=== PATIENT | male | born 1945 | race Caucasian/White ===

== ENCOUNTER 2021-03-06 03:15 | Emergency (ER) | payer MEDICARE, SELFPAY ==
--- NOTE | ~2021-03-06 | XR_ITS ---
EXAMINATION: XR G tube replacement w image INDICATION: G-tube replacement TECHNIQUE: Supine view of the abdomen is obtained on two radiographs. COMPARISON: None available FINDINGS: The gastrostomy appears to be within the stomach. Injected contrast material partially opac ifies the stomach and proximal small bowel. No extraluminal contrast is identified. IMPRESSION: 1. G-tube appears to be positioned stomach with no extraluminal contrast identified. Reviewed, dictated and finalized at location A. IMPRESSION: 1. G-tube appears to be positioned stomach with no extraluminal contrast identi fied.
[2021-03-06 03:12] VITALS: BP 145/90; PULSE 86; RESP 18; TEMP 36.5; O2SAT 100
[2021-03-06] MEDS: HYDROcodone/acetaminophen (*CRX) 5-325 MG TABLET 1 TAB PO (03:58)
[2021-03-06 04:31] VITALS: BP 116/87; PULSE 61; RESP 18; O2SAT 100
--- NOTE | 2021-03-06 04:33 | ED.GENADULT ---
HPI - General Adult General Chief complaint: Unspecified Stated complaint: g-tube out Time Seen by Provider: 03/06/21 03:18 History of Present Illness HPI narrative: Patient is a 75-year-old male who presents ER with dislodgment of his G-tube. He pulled it out 2 hours prior to arrival. Reports he got caught on something and came out. He requires it due to chronic dysphagia from previous stroke. No additional complaints. Related Data Home Medications Medication Instructions Recorded Confirmed acetaminophen 03/06/21 alprazolam 03/06/21 amlodipine 03/06/21 aspirin 03/06/21 atorvastatin 03/06/21 buspirone mg 03/06/21 chlorthalidone 03/06/21 dantrolene 25 mg PO TID 03/06/21 03/06/21 docusate sodium PO 03/06/21 lactose-reduced food with fibr ea 03/06/21 [Jevity 1.5 Leonidas] lansoprazole 03/06/21 potassium chloride 20 meq PO DAILY 03/06/21 03/06/21 tizanidine mg 03/06/21 trazodone 03/06/21 zolpidem 03/06/21 03/06/21 Allergies Allergy/AdvReac Type Severity Reaction Status Date / Time alteplase Allergy Unknown Verified 03/06/21 03:31 Review of Systems Review of Systems: All systems reviewed & are unremarkable except as noted in HPI and below Constitutional: Constitutional: Denies chills and Denies fever(s) Gastrointestinal: Gastrointestinal: Denies abdominal pain, Denies nausea and Denies vomiting Comments: Dislodgment of G-tube Musculoskeletal: Musculoskeletal: Denies myalgias and Reports muscle cramps (Spasticity) PMFSH Past Medical History Medical History (Updated 03/06/21 @ 04:47 by Jake Angel MD) Anxiety CHF (congestive heart failure) CVA (cerebral vascular accident) Dysphagia Hemiplegia affecting left nondominant side Hyperlipidemia Hypertension Surgical History Surgical History (Updated 03/06/21 @ 04:42 by Jake Angel MD) Gastrostomy tube in place Exam Narrative: GENERAL: Well-appearing, well-nourished, and in no acute distress. HEAD: Normocephalic, atraumatic. ENT: Dry mucous membranes. CHEST: Clear to auscultation. No respiratory distress. HEART: Regular rate and rhythm. Normal peripheral pulses. ABDOMEN: Soft, nontender, G-tube site in the epigastrium that is narrow without leaking of gastric contents. EXTREMITIES: Contractures of the left upper extremity with left-sided weakness. SKIN: Warm, dry, no rash. Course Course Emergency Course: Unable to place G-tube so a Rowland catheter has been placed and is in position. Patient will need to follow-up with GI. Vital Signs Vital signs: Vital Signs Temperature 97.7 F 03/06/21 03:12 Pulse Rate 86 03/06/21 03:12 Respiratory Rate 18 03/06/21 03:12 Blood Pressure 145/90 H 03/06/21 03:12 Pulse Oximetry 100 03/06/21 03:12 Temperature 97.7 F 03/06/21 03:12 Pulse Rate 61 03/06/21 04:31 Respiratory Rate 18 03/06/21 04:31 Blood Pressure 116/87 03/06/21 04:31 Pulse Oximetry 100 03/06/21 04:31 Procedures Feeding Tube Replacement Feeding Tube #1: Feeding Tube Placement Date: 03/06/21 Feeding Tube Placement Time: 03:25 Type of Tube: gastrostomy Insertion Site Prior to Procedure: clean Tube Used for Reinsertion: Rowland Bhutanese Tube Size (F): 16 Balloon size (mL): 5 Verification of Placement: gastrografin injection Tube Secured by: tape/dressing Patient Tolerated Procedure: well Medical Decision Making Vital Signs Vital Signs: Vital Signs Temperature 97.7 F 03/06/21 03:12 Pulse Rate 86 03/06/21 03:12 Respiratory Rate 18 03/06/21 03:12 Blood Pressure 145/90 H 03/06/21 03:12 Pulse Oximetry 100 03/06/21 03:12 Temperature 97.7 F 03/06/21 03:12 Pulse Rate 61 03/06/21 04:31 Respiratory Rate 18 03/06/21 04:31 Blood Pressure 116/87 03/06/21 04:31 Pulse Oximetry 100 03/06/21 04:31 Discharge Plan Discharge Clinical Impression: Dislodged gastrostomy tube Patient Dispo
--- NOTE | 2021-03-06 04:45 | PC.NURSE ---
called [facility] to request transport. ETA 20 min.
--- NOTE | 2021-03-06 04:50 | PC.NURSE ---
Attempted to call report to facility, placed on hold for 10 min. Will call facility again.
--- NOTE | 2021-03-06 05:00 | PC.NURSE ---
Called [facility] [phone]. Placed on hold at this time.
--- NOTE | 2021-03-06 05:09 | PC.NURSE ---
[facility] here.
--- NOTE | 2021-03-06 05:13 | PC.NURSE ---
RN left on hold ribbon lapper tender to [place] for 13 min, unable to reach staff nurse at this time for report.
== END 2021-03-06 05:12 ==
PROVIDERS: Emergency Provider Emergency Medicine; PCP Internal Medicine
DX: Z43.1 Encounter for attention to gastrostomy (principal); I69.991 Dysphagia following unspecified cerebrovascular disease; R13.10 Dysphagia, unspecified; I69.954 Hemiplegia and hemiparesis following unspecified cerebrovascular disease affecting left non-dominant side; I50.9 Heart failure, unspecified; I11.0 Hypertensive heart disease with heart failure; E78.5 Hyperlipidemia, unspecified; F41.9 Anxiety disorder, unspecified; Z79.82 Long term (current) use of aspirin
CPT/HCPCS: 49450; 99284; A9270

== ENCOUNTER 2021-03-07 09:43 | Emergency (ER) | payer MEDICARE, SELFPAY ==
--- NOTE | ~2021-03-07 | XR_ITS ---
EXAMINATION: XR G tube replacement w image INDICATION: G-tube replacement TECHNIQUE: Supine view of the abdomen is obtained. COMPARISON: 03/06/2021 FINDINGS: The G-tube is in the stomach. Injected contrast opacifies the stomach. Enteric contrast mat erial in the large bowel is seen from yesterday's comparison examination. There are no dilated loops of bowel. No free intracranial gas is identified. IMPRESSION: 1. G-tube in the stomach. Reviewed, dictated and finalized at location A. IMPRESSION: 1. G-tube in the stomach.
[2021-03-07 09:49] VITALS: BP 115/82; PULSE 93; RESP 18; TEMP 36.6; O2SAT 99
--- NOTE | 2021-03-07 10:14 | ED.GENADULT ---
HPI - General Adult General Chief complaint: Unspecified Stated complaint: G-TUBE REPLACEMENT Time Seen by Provider: 03/07/21 10:12 Source: other (Dr. Slaughter, family doctor) Mode of arrival: EMS Limitations: other (Dementia) History of Present Illness HPI narrative: Patient sent here by Dr. Slaughter for G-tube replacement. Patient was seen here 2 days ago after pulling his G-tube out, was replaced with a Rowland since we did not have that particular G-tube at that time. No other complaints at this time. Related Data Home Medications Medication Instructions Recorded Confirmed acetaminophen 03/06/21 alprazolam 03/06/21 amlodipine 03/06/21 aspirin 03/06/21 atorvastatin 03/06/21 buspirone mg 03/06/21 chlorthalidone 03/06/21 dantrolene 25 mg PO TID 03/06/21 03/06/21 docusate sodium PO 03/06/21 lactose-reduced food with fibr ea 03/06/21 [Jevity 1.5 Leonidas] lansoprazole 03/06/21 potassium chloride 20 meq PO DAILY 03/06/21 03/06/21 tizanidine mg 03/06/21 trazodone 03/06/21 zolpidem 03/06/21 03/06/21 Allergies Allergy/AdvReac Type Severity Reaction Status Date / Time alteplase Allergy Unknown Verified 03/06/21 03:31 Review of Systems Review of Systems: All systems reviewed & are unremarkable except as noted in HPI and below ROS unobtainable: Yes unobtainable due to medical condition, unobtainable due to mental status and other (Dementia) [facility] Past Medical History Medical History (Updated 03/07/21 @ 11:38 by Virgil Waldrop MD) Anxiety CHF (congestive heart failure) CVA (cerebral vascular accident) Dysphagia Hemiplegia affecting left nondominant side Hyperlipidemia Hypertension Malfunction of percutaneous endoscopic gastrostomy (PEG) tube Surgical History Surgical History Gastrostomy tube in place Exam Const: General: cooperative Limitations: other limitations (Dementia) HENMT: Head: normal to inspection, normocephalic and atraumatic Ears: hearing grossly normal bilaterally, TM normal on the right and TM normal on the left General nose exam: Normal external nose present, Normal nares present and No nasal discharge present Face and sinus: normal facial exam Mouth: Yes Normal oral and palatal mucosa present, Yes lip normal, Yes tongue normal and Yes oropharynx normal Throat: posterior oropharynx normal, tonsils normal and uvula midline Eyes: General: appearance normal, both eyes and all related structures Pupils: Equal, round and reactive pupils present EOM: EOMs intact bilaterally Neck: Neck: normal visual inspection, full ROM, no lymphadenopathy and no meningeal signs Chest: Chest palpation & inspection: normal inspection of the chest Resp: Effort & Inspection: normal respiratory effort, able to speak in complete sentences, no respiratory distress and not tachypneic Auscultation: clear to auscultation bilaterally, no crackles, no rales, no rhonchi and no wheezes Cardio: Rate: regular rate Rhythm: regular rhythm GI: Inspection: normal to inspection GI Palp: No abdominal tenderness, Yes Soft to palpation, No Tenderness to palpation present (GI), No Guarding due to palpation present (GI), No Rigid due to palpation and No Rebound tenderness present Auscultation: normal bowel sounds Other: Rowland tube in place where the G-tube is supposed to be. No surrounding erythema or signs of cellulitis. Extrem: General: normal to inspection, full ROM and capillary refill normal Course Vital Signs Vital signs: Vital Signs Temperature 36.6 C 03/07/21 09:49 Pulse Rate 93 03/07/21 09:49 Respiratory Rate 18 03/07/21 09:49 Blood Pressure 115/82 03/07/21 09:49 Pulse Oximetry 99 03/07/21 09:49 Temperature 36.6 C 03/07/21 09:49 Pulse Rate 93 03/07/21 09:49 Respiratory Rate 18 03/07/21 09:49 Blood Pressure 115/82 03/07/21 09:49 Pulse Oximetry 99 03/07/21 09:49 Medical Decision Making MDM Narrat
--- NOTE | 2021-03-07 11:13 | PC.NURSE ---
Dr Bronson at bedside and replaced pts G-tube with 18fr tube. XR ordered to verify placement
--- NOTE | 2021-03-07 11:18 | PM.HPGS ---
History of Present Illness History of Present Illness Consent: Risks, benefits, and alternatives have been discussed and questions answered. Patient agrees to proceed with procedure. Chief complaint: G-TUBE REPLACEMENT Narrative: Katie Kelly is a 75 year old male with h/o CVA and dysphagia, had G-tube placed earlier this year at [facility], 2 days ago pulled G-tube by accident and layton catheter was placed temporarily, he is here to have definitive G-tube placement again. is here in ER Review of Systems Constitutional: Constitutional: Denies headache(s) and Denies weakness Eyes: Eyes: Denies blurry vision ENT: Reports Normal hearing present, Denies headache(s) and Denies neck pain Cardiovascular: Cardiovascular: Denies chest pain and Denies dyspnea Respiratory: Respiratory: Denies dyspnea Gastrointestinal: Gastrointestinal: Reports no additional gastrointestinal complaints Genitourinary: Genitourinary: Denies dysuria Musculoskeletal: Musculoskeletal: Denies neck pain Integumentary/Breasts: Skin/Breast: Denies dry skin Neurologic: Reports Normal hearing present, Denies headache(s) and Denies weakness Psychiatric: Psychiatric: Denies anxiety Endocrine: Endocrine: Denies change in body appearance Hematologic/Lymphatic: Hematologic/Lymphatic: Denies easy bleeding Allergic/Immunologic: Allergic/Immunologic: Denies urticaria PMFSH Past Medical History Medical History (Updated 03/07/21 @ 11:23 by Elmo Jiménez MD) Anxiety CHF (congestive heart failure) CVA (cerebral vascular accident) Dysphagia Hemiplegia affecting left nondominant side Hyperlipidemia Hypertension Malfunction of percutaneous endoscopic gastrostomy (PEG) tube Surgical History Surgical History Gastrostomy tube in place Meds Home Medications and Allergies Home Medications Medication Instructions Recorded Confirmed Type acetaminophen 03/06/21 History alprazolam 03/06/21 History amlodipine 03/06/21 History aspirin 03/06/21 History atorvastatin 03/06/21 History buspirone mg 03/06/21 History chlorthalidone 03/06/21 History dantrolene 25 mg PO TID 03/06/21 03/06/21 History docusate sodium PO 03/06/21 History lactose-reduced food with fibr ea 03/06/21 History [Jevity 1.5 Leonidas] lansoprazole 03/06/21 History potassium chloride 20 meq PO DAILY 03/06/21 03/06/21 History tizanidine mg 03/06/21 History trazodone 03/06/21 History zolpidem 03/06/21 03/06/21 History Allergies Allergy/AdvReac Type Severity Reaction Status Date / Time alteplase Allergy Unknown Verified 03/06/21 03:31 Vital Signs Vital Signs - 24 hr 03/07/21 09:49 Temperature 97.9 F Pulse Rate 93 Respiratory Rate 18 Blood Pressure 115/82 Pulse Oximetry 99 Exam Const: General: comfortable and no acute distress HENMT: General nose exam: Normal nares present Eyes: General: appearance normal, both eyes and all related structures Neck: Neck: no JVD Resp: Auscultation: clear to auscultation bilaterally Cardio: Rate: regular rate Rhythm: regular rhythm GI: Inspection: non-distended GI Palp: Yes Soft to palpation and No Tenderness to palpation present (GI) Other: layton catheter in gastrostomy site, no drainage, site looks ok otherwise Skin: General skin exam: no rashes or lesions noted Neuro: Other: Rt sided hemiparesis Extrem: General: normal to inspection Psych: Mental Status: mental status grossly normal Assessment and Plan Assessment and plan (1) Malfunction of percutaneous endoscopic gastrostomy (PEG) tube: Code(s): K94.23 - Gastrostomy malfunction Status: Acute Assessment and Plan: will try to exchange G-tube at bedside (2) CVA (cerebral vascular accident): Code(s): I63.9 - Cerebral infarction, unspecified Status: Inactive (3) Dysphagia: Code(s): R13.10 - Dysphagia, unspecified Status: Inac
--- NOTE | 2021-03-07 11:26 | WPDPROCEDUR ---
Procedures Feeding Tube Replacement Type of tube: gastrostomy Insertion site prior to procedure: clean English Tube Size (F): 18 Balloon size (ml): 6 Verification of placement: gastrografin injection Tube secured by: tape/dressing Patient tolerated procedure: well Additional comments: layton catheter was deflated and then I introduced 18F G-tube using same gastrostomy site without complications, inflated balloon with 6cc water, gastrografin was ordered and pending. If in right position then he can go home and resume regular tube feeding at home
--- NOTE | 2021-03-07 11:50 | PC.NURSE ---
Spoke with Nurse at [place] and gave report. Transport van will be able to flower picker pt in about 15min
[2021-03-07 12:03] VITALS: BP 126/82; PULSE 94; RESP 18; O2SAT 100
== END 2021-03-07 12:05 ==
PROVIDERS: Emergency Provider Emergency Medicine; PCP Internal Medicine
DX: Z43.1 Encounter for attention to gastrostomy (principal); I50.9 Heart failure, unspecified; I69.954 Hemiplegia and hemiparesis following unspecified cerebrovascular disease affecting left non-dominant side; I69.991 Dysphagia following unspecified cerebrovascular disease; R13.10 Dysphagia, unspecified; E78.5 Hyperlipidemia, unspecified; F41.9 Anxiety disorder, unspecified; I11.0 Hypertensive heart disease with heart failure
CPT/HCPCS: 49450; 99284

== ENCOUNTER 2021-03-10 03:04 | Observation (INO) | payer MEDICARE, SELFPAY ==
[2021-03-10] VITALS (8 sets, daily range): BP systolic 93–141; BP diastolic 53–82; PULSE 52–95; RESP 13–23; TEMP 36.3–36.7; O2SAT 94–100; BMI 24.3
--- NOTE | 2021-03-10 04:08 | ED.GENADULT ---
HPI - General Adult General Chief complaint: Unspecified Stated complaint: g tube replacement Time Seen by Provider: 03/10/21 03:49 Source: RN notes reviewed History of Present Illness HPI narrative: Patient presents emergency room from [facility] via EMS for due to malfunction. Patient states his G-tube was pulled out yesterday. There was found to be at the scene by F staff and then came for replacement. Patient states he has a history of previous CVA denies any abdominal pain or fevers denies any other symptoms at this time his G-tube had just been replaced 3 days ago by GI at our facility Related Data Home Medications Medication Instructions Recorded Confirmed acetaminophen 03/06/21 alprazolam 03/06/21 amlodipine 03/06/21 aspirin 03/06/21 atorvastatin 03/06/21 buspirone mg 03/06/21 chlorthalidone 03/06/21 dantrolene 25 mg PO TID 03/06/21 03/06/21 docusate sodium PO 03/06/21 lactose-reduced food with fibr ea 03/06/21 [Jevity 1.5 Leonidas] lansoprazole 03/06/21 potassium chloride 20 meq PO DAILY 03/06/21 03/06/21 tizanidine mg 03/06/21 trazodone 03/06/21 zolpidem 03/06/21 03/06/21 Allergies Allergy/AdvReac Type Severity Reaction Status Date / Time alteplase Allergy Unknown Verified 03/10/21 03:51 Review of Systems Review of Systems: Gen.: Denies fevers or chills ENT: Denies congestion Respiratory: Denies shortness of breath or cough CV: Denies chest pain or palpitations GI: See HPI Musculoskeletal: Denies back pain or muscle pain Neuro: Denies headache Skin: Denies rash Except as documented, all other systems reviewed and negative [facility] Past Medical History Medical History Anxiety CHF (congestive heart failure) CVA (cerebral vascular accident) Dysphagia Hemiplegia affecting left nondominant side Hyperlipidemia Hypertension Malfunction of percutaneous endoscopic gastrostomy (PEG) tube Surgical History Surgical History Gastrostomy tube in place Exam Narrative: APPEARANCE: No acute distress, nontoxic, resting in bed EYES: EOMI HEENT: Normocephalic, atraumatic, OMM RESPIRATORY: No respiratory distress Clear to auscultation bilaterally with no rhonchi wheezing or rales. CARDIOVASCULAR: Regular rate and rhythm without murmurs rubs or gallops. ABDOMINAL: Soft, nontender, nondistended, no rebound or guarding there is a PEG tube wound in the upper mid abdomen MUSCULOSKELETAl: No clubbing, cyanosis or edema. NEURO: Awake and alert. Following commands, speech normal, SKIN:: Warm, dry. No rashes lesions or abrasions PSYCHIATRIC: Normal affect/mood, Course Course Emergency Course: Reviewed old records Attempted to replace PEG tube with the patient's G-tube tract is closed at this time will admit for replacement by GI Discussed with Dr. Camp presentation work-up agrees with consult Discussed with Dr. Meelndrez presentation work-up agrees with admission at this time Discussed with patient and family results of workup and diagnosis. Discussed need for admission. Patient and family understand and agree to current treatment plan Vital Signs Vital signs: Vital Signs Temperature 97.8 F 03/10/21 03:05 Pulse Rate 52 L 03/10/21 03:05 Respiratory Rate 14 03/10/21 03:05 Blood Pressure 141/82 H 03/10/21 03:05 Pulse Oximetry 99 03/10/21 03:05 Temperature 97.8 F 03/10/21 03:05 Pulse Rate 75 03/10/21 05:05 Respiratory Rate 14 03/10/21 05:05 Blood Pressure 125/75 03/10/21 05:05 Pulse Oximetry 96 03/10/21 05:05 Medical Decision Making Vital Signs Vital Signs: Vital Signs Temperature 97.8 F 03/10/21 03:05 Pulse Rate 52 L 03/10/21 03:05 Respiratory Rate 14 03/10/21 03:05 Blood Pressure 141/82 H 03/10/21 03:05 Pulse Oximetry 99 03/10/21 03:05 Temperature 97.8 F 03/10/21 03:05 Pulse Rate 75 03/10/21 05:05 Respiratory
[2021-03-10 04:19] LABS: Basophils Absolute Auto 0.1 K/mm3 (0.0-0.1); Basophils Percent Auto 0.5 % (0.2-1.2); Eosinophils Absolute Auto 0.1 K/mm3 (0-0.3); Eosinophils Percent Auto 1.5 % (0-4.4); Hematocrit 39.2 % (42.0-52.0); Hemoglobin 12.7 g/dL (14.0-18.0); Immature Granulocyte Absolute 0.04 K/mm3 (0.00-0.031); Immature Granulocyte Percent A 0.4 % (0-0.5); Lymphocytes Absolute Auto 1.44 K/mm3 (0.9-3.2); Mean Corpuscular HGB Conc 32.4 g/dl (32-36); Mean Corpuscular Hemoglobin 31.8 pg (26-34); Mean Corpuscular Volume 98.2 fl (80-100); Mean Platelet Volume 10.5 fl (7.4-10.4); Monocytes Absolute Auto 0.9 K/mm3 (0.1-0.6); Monocytes Percent Auto 9.1 % (2.6-8.5); Neutrophils Percent Auto 73.5 % (45.5-73.1); Platelet Count Result 227 k/mm3 (150-375); Red Blood Count 3.99 M/mm3 (4.6-6.20); Red Cell Distribution Width 12.4 % (11.5-14.5); White Blood Count 9.6 K/mm3 (4.5-10.0)
[2021-03-10 04:29] LABS: Alanine Aminotransferase 38 U/L (4-50); Albumin Level 3.7 g/dL (3.5-5.1); Alkaline Phosphatase 115 U/L (38-126); Anion Gap 8 mmol/L (8-16); Aspartate Amino Transferase 26 U/L (17-59); Bilirubin,Total 0.6 mg/dL (0.2-1.3); Blood Urea Nitrogen 33 mg/dL (9-20); Calcium 9.2 mg/dL (8.4-10.2); Carbon Dioxide 29 mmol/L (22-30); Chloride 106 mmol/L (98-107); Estimated Glomerular Filt Rate > 60; Glucose 118 mg/dL (65-110); Potassium 3.1 mmol/L (3.4-5.0); Sodium 143 mmol/L (137-145)
[2021-03-10] MEDS: MORPHINE SULFATE (*CRX) 2 MG/ML INJ IV PUSH (04:31)
[2021-03-10 05:19] LABS: Magnesium 2.1 mg/dL (1.6-2.3)
--- NOTE | 2021-03-10 05:36 | ADMGEN ---
This patient, Katie Kelly, was admitted to [facility] S[facility] Room 305-01. Patient/family oriented to hospital policies and general routines including ID bracelet, bed and alarms, visiting hours, pain management, procedures, bathroom and other care routines, personal items, smoking policy, room service/diet, and visiting hours. Information on how to activate the Rapid Response Team has been discussed. Patient/Family are encouraged to report perceived risks to care and to ask questions if they do not understand what they are told or what they should do.
--- NOTE | 2021-03-10 08:13 | WPDANESEPPF ---
Anes - Initial Pre Proc Eval Procedure: Operation Date: 03/10/21 09:00 Proposed Procedures p Percutaneous Endoscopic Gastrostomy - Elmo Jiménez MD Date/Time: 03/10/21 08:13 Surgeon: Cody Sandoval MD Pre Op Diagnosis: G-tube Malfunction Patient Data Age: 75 Gender: M Height: 1.78 m Weight: 77 kg Last Vital Signs Temp 36.3 C L 03/10/21 05:00 Pulse 75 03/10/21 05:05 Resp 14 03/10/21 05:05 BP 125/75 03/10/21 05:05 Pulse Ox 96 03/10/21 05:05 Allergies Allergy/AdvReac Type Severity Reaction Status Date / Time alteplase Allergy Unknown Verified 03/10/21 03:51 Home Medications Medication Instructions Recorded Confirmed Type acetaminophen 500 mg FEEDING TUBE QID 03/06/21 03/10/21 History alprazolam 0.5 mg PO TID 03/06/21 03/10/21 History amlodipine 5 mg PO DAILY 03/06/21 03/10/21 History aspirin 81 mg FEEDING TUBE DAILY 03/06/21 03/10/21 History atorvastatin 10 mg FEEDING TUBE DAILY 03/06/21 03/10/21 History buspirone 7.5 mg PO BID 03/06/21 03/10/21 History chlorthalidone 25 mg PO DAILY 03/06/21 03/10/21 History dantrolene 25 mg FEEDING TUBE TID 03/06/21 03/10/21 History docusate sodium 100 mg PO DAILY 03/06/21 03/10/21 History lansoprazole 30 mg FEEDING TUBE DAILY 03/06/21 03/10/21 History potassium chloride 20 meq PO DAILY 03/06/21 03/10/21 History tizanidine 4 mg PO TID 03/06/21 03/10/21 History trazodone 50 mg PO HS 03/06/21 03/10/21 History zolpidem 5 mg PO HS 03/06/21 03/10/21 History guaifenesin 200 mg FEEDING TUBE Q4H PRN 03/10/21 03/10/21 History hydrocodone-acetaminophen 1 tablet PO Q6H PRN 03/10/21 03/10/21 History hydrocortisone 1 applic TOPICAL TID 03/10/21 03/10/21 History lidocaine 1 patch TOPICAL DAILY 03/10/21 03/10/21 History polyethylene glycol 3350 17 g PO DAILY 03/10/21 03/10/21 History Laboratory Tests 03/10/21 03/10/21 03/10/21 04:12 04:12 04:12 WBC 9.6 K/mm3 K/mm3 (4.5-10.0) RBC 3.99 M/mm3 L M/mm3 (4.6-6.20) Hgb 12.7 g/dL L g/dL (14.0-18.0) Hct 39.2 % L % (42.0-52.0) MCV 98.2 fl fl (80-100) MCH 31.8 pg pg (26-34) MCHC 32.4 g/dl g/dl (32-36) RDW 12.4 % % (11.5-14.5) Plt Count 227 k/mm3 k/mm3 (150-375) MPV 10.5 fl H fl (7.4-10.4) Immature Gran % (Auto) 0.4 % % (0-0.5) Neut % (Auto) 73.5 % H % (45.5-73.1) Lymph % (Auto) 15.0 % L % (18.3-44.2) [place] % (Auto) 9.1 % H % (2.6-8.5) Eos % (Auto) 1.5 % % (0-4.4) Baso % (Auto) 0.5 % % (0.2-1.2) Lymph # (Auto) 1.44 K/mm3 K/mm3 (0.9-3.2) [place] # (Auto) 0.9 K/mm3 H K/mm3 (0.1-0.6) Eos # (Auto) 0.1 K/mm3 K/mm3 (0-0.3) Baso # (Auto) 0.1 K/mm3 K/mm3 (0.0-0.1) Abs Immat Gran (auto) 0.04 K/mm3 H K/mm3 (0.00-0.031) Absolute Neuts (auto) 7.0 K/mm3 H K/mm3 (1.3-6.7) Absolute Nucleated RBC 0.0 K/mm3 K/mm3 (0.0-0.012) Nucleated RBC % 0.0 % % (0.0-0.2) Sodium 143 mmol/L mmol/L (137-145) Potassium 3.1 mmol/L L mmol/L (3.4-5.0) Chloride 106 mmol/L mmol/L (98-107) Carbon Dioxide 29 mmol/L mmol/L (22-30) Anion Gap 8 mmol/L mmol/L (8-16) BUN 33 mg/dL H mg/dL (9-20) Creatinine 0.90 mg/dL mg/dL (0.7-1.3) Estim Creat Clear Calc Not Reportable Estimated GFR > 60 (59 - ) Glucose 118 mg/dL H mg/dL (65-110) Calcium 9.2 mg/dL mg/dL (8.4-10.2) Magnesium 2.1 mg/dL mg/dL (1.6-2.3) Total Bilirubin 0.6 mg/dL mg/dL (0.2-1.3) AST 26 U/L U/L (17-59) ALT 38 U/L U/L (4-50) Alkaline Phosphatase 115 U/L U/L (38-126) Total Protein 7.0 g/dL g/dL (6.3-8.2) Albumin 3.7 g/dL g/dL (3.5-5.1) Patient hx anesthesia problems: none Family hx anesthesia problems:
[2021-03-10] MEDS: LACTATED RINGERS 1,000 ML 150 ML IV CONT (08:19)
--- NOTE | 2021-03-10 08:28 | PM.IMHP ---
H&P: HPI History of Present Illness Date/Time: 03/10/21 08:28 Chief Complaint: Gastrostomy tube inadvertent removal Narrative: This is a 75 year gentleman with past medical history of CVA, hyperlipidemia, hypertension, CHF, and dysphagia, with feeding through percutaneous gastrostomy tube, into the emergency department this morning after he was brought in by EMS, for inadvertent removal of his gastrostomy tube. He does not know how it happened. He thinks he may have gotten caught through his clothes. He reports he has been otherwise in his usual state of health. He is usually unable to move his left upper extremity due to prior stroke. His initial blood work showed WBC 9.6, hemoglobin 12.7, platelets 227, MCV 98, sodium 143, potassium 3.1, chloride 106, bicarb 29, anion gap 8, BUN 33, creatinine 0.9, glucose 118, calcium 9.2, magnesium 2.1, normal liver function tests, albumin 3.7. Of note, he just presented on 03/06 with similar complaint and a [place] catheter was placed to keep the tract, then presented again on 03/07 and he had a gastrostomy tube placed at the bedside. He was discharged from the emergency department. However this is the 2nd time it happens. Initially per his report his PEG tube was placed at [facility] in December of this year due to dysphagia related to his stroke. Review of Systems Review of Systems: All systems reviewed & are unremarkable except as noted in HPI and below PMFSH Past Medical History Medical History (Updated 03/10/21 @ 08:39 by Honorio Jacob MD) Anxiety CHF (congestive heart failure) CVA (cerebral vascular accident) Dysphagia Hemiplegia affecting left nondominant side Hyperlipidemia Hypertension Malfunction of percutaneous endoscopic gastrostomy (PEG) tube Surgical History Surgical History Gastrostomy tube in place Social History Social History Smoking status: Never smoker Alcohol intake: former Substance use: never Spiritual care concerns: No Meds Home Medications and Allergies Home Medications Medication Instructions Recorded Confirmed Type acetaminophen 500 mg FEEDING TUBE QID 03/06/21 03/10/21 History alprazolam 0.5 mg PO TID 03/06/21 03/10/21 History amlodipine 5 mg PO DAILY 03/06/21 03/10/21 History aspirin 81 mg FEEDING TUBE DAILY 03/06/21 03/10/21 History atorvastatin 10 mg FEEDING TUBE DAILY 03/06/21 03/10/21 History buspirone 7.5 mg PO BID 03/06/21 03/10/21 History chlorthalidone 25 mg PO DAILY 03/06/21 03/10/21 History dantrolene 25 mg FEEDING TUBE TID 03/06/21 03/10/21 History docusate sodium 100 mg PO DAILY 03/06/21 03/10/21 History lansoprazole 30 mg FEEDING TUBE DAILY 03/06/21 03/10/21 History potassium chloride 20 meq PO DAILY 03/06/21 03/10/21 History tizanidine 4 mg PO TID 03/06/21 03/10/21 History trazodone 50 mg PO HS 03/06/21 03/10/21 History zolpidem 5 mg PO HS 03/06/21 03/10/21 History guaifenesin 200 mg FEEDING TUBE Q4H PRN 03/10/21 03/10/21 History hydrocodone-acetaminophen 1 tablet PO Q6H PRN 03/10/21 03/10/21 History hydrocortisone 1 applic TOPICAL TID 03/10/21 03/10/21 History lidocaine 1 patch TOPICAL DAILY 03/10/21 03/10/21 History polyethylene glycol 3350 17 g PO DAILY 03/10/21 03/10/21 History Allergies Allergy/AdvReac Type Severity Reaction Status Date / Time alteplase Allergy Unknown Verified 03/10/21 03:51 Vital Signs Vital Signs - 24 hr 03/10/21 03:05 03/10/21 05:00 03/10/21 05:05 Temperature 97.8 F 97.3 F L Pulse Rate 52 L 89 75 Respiratory Rate 14 18 14 Blood Pressure 141/82 H 132/79 125/75 Pulse Oximetry 99 98 96 03/10/21 08:18 Temperature 97.7 F Pulse Rate 95 Respiratory Rate 16 Blood Pressure 140/82 Pulse Oximetry 99 Exam Narrative: Gen: Alert, NAD Abd: Soft, NT, PEG site noted, no dsichagre Heart: RRR Lungs: CTAB Ext: No lower extremity edema Skin: No abnormality Eyes: ani
--- NOTE | 2021-03-10 08:40 | PC.NURSE ---
8am taken to GI lab for Gtube placement.
--- NOTE | 2021-03-10 09:18 | WPDGICN ---
Assessment and Plan Assessment and plan (1) Dysphagia as late effect of cerebrovascular accident (CVA): Code(s): I69.391 - Dysphagia following cerebral infarction Status: Acute Assessment and Plan: will proceed with placement of a new G-tube endoscopically and then secure with abdominal binder he will received ancef IV prior placement (2) Dislodged gastrostomy tube: Code(s): T85.528A - Displacement of other gastrointestinal prosthetic devices, implants and grafts, initial encounter Status: Acute (3) Acute hypokalemia: Code(s): E87.6 - Hypokalemia Status: Acute Assessment and Plan: replete (4) CHF (congestive heart failure): Code(s): I50.9 - Heart failure, unspecified Status: Inactive Assessment and Plan: stable (5) Hypertension: Code(s): I10 - Essential (primary) hypertension Status: Acute Assessment and Plan: on meds GI Consult Note Consult date/time: 03/10/21 09:18 Reason for consult: dysphagia, patient just pulled G-tube HPI: Katie Kelly is a 75 year old male with past medical history of CVA 12/2020 and [facility], hyperlipidemia, hypertension, CHF. I met 3 days ago after he came to ER after he pulled G-tube, it was replaced at the bedside and confirmed with gastrografin study then he went home. G-tube was pulled out again, ER physician tried to put a new one but this time tract was too small. He has been admitted so I can place new G-tube endoscopically. He also is confused. Review of Systems Constitutional: Constitutional: Denies chills Eyes: Eyes: Reports no additional eye complaints ENT: Reports Normal hearing present Cardiovascular: Cardiovascular: Denies chest pain Respiratory: Respiratory: Denies dyspnea Gastrointestinal: Comments: dysphagia Genitourinary: Genitourinary: Denies dysuria Musculoskeletal: Musculoskeletal: Denies arthralgias Neurologic: Comments: h/o CVA Psychiatric: Psychiatric: Reports behavioral changes [facility] Past Medical History Medical History (Updated 03/10/21 @ 09:26 by Elmo Jiménez MD) Anxiety CHF (congestive heart failure) CVA (cerebral vascular accident) Dysphagia Dysphagia as late effect of cerebrovascular accident (CVA) Hemiplegia affecting left nondominant side Hyperlipidemia Hypertension Malfunction of percutaneous endoscopic gastrostomy (PEG) tube Surgical History Surgical History Gastrostomy tube in place Social History Social History Smoking status: Never smoker Alcohol intake: former Substance use: never Spiritual care concerns: No Meds Home Medications and Allergies Home Medications Medication Instructions Recorded Confirmed Type acetaminophen 500 mg FEEDING TUBE QID 03/06/21 03/10/21 History alprazolam 0.5 mg PO TID 03/06/21 03/10/21 History amlodipine 5 mg PO DAILY 03/06/21 03/10/21 History aspirin 81 mg FEEDING TUBE DAILY 03/06/21 03/10/21 History atorvastatin 10 mg FEEDING TUBE DAILY 03/06/21 03/10/21 History buspirone 7.5 mg PO BID 03/06/21 03/10/21 History chlorthalidone 25 mg PO DAILY 03/06/21 03/10/21 History dantrolene 25 mg FEEDING TUBE TID 03/06/21 03/10/21 History docusate sodium 100 mg PO DAILY 03/06/21 03/10/21 History lansoprazole 30 mg FEEDING TUBE DAILY 03/06/21 03/10/21 History potassium chloride 20 meq PO DAILY 03/06/21 03/10/21 History tizanidine 4 mg PO TID 03/06/21 03/10/21 History trazodone 50 mg PO HS 03/06/21 03/10/21 History zolpidem 5 mg PO HS 03/06/21 03/10/21 History guaifenesin 200 mg FEEDING TUBE Q4H PRN 03/10/21 03/10/21 History hydrocodone-acetaminophen 1 tablet PO Q6H PRN 03/10/21 03/10/21 History hydrocortisone 1 applic TOPICAL TID 03/10/21 03/10/21 History lidocaine 1 patch TOPICAL DAILY 03/10/21 03/10/21 History polyethylene glycol 3350 17 g PO DAILY
[2021-03-10] MEDS: SODIUM CHLORIDE 0.9% IV 1,000 ML 125 ML IV CONT (10:42)
--- NOTE | 2021-03-10 10:46 | PC.NURSE ---
1030 am pt back in room with 20 sing[place]an gtube placed.
[2021-03-10] MEDS: POTASSIUM CHLORIDE 20 MEQ PACKET (FOR LIQUID) PO (10:51)
[2021-03-10] MEDS: polyethylene glycoL 3350 17 GM POWD.PACK PO (10:51)
[2021-03-10] MEDS: ATORVASTATIN 10 MG TABLET FEED TUBE (10:51)
[2021-03-10] MEDS: DOCUSATE SODIUM 100 MG CAPSULE PO (10:51)
[2021-03-10] MEDS: ASPIRIN 81 MG CHEWABLE TABLET FEED TUBE (10:51)
[2021-03-10] MEDS: TIZANIDINE HCL 4 MG TABLET PO ×3 (10:51→16:57)
[2021-03-10] MEDS: ACETAMINOPHEN 500 MG TABLET FEED TUBE ×3 (10:52→16:57)
[2021-03-10] MEDS: CHLORTHALIDONE 25 MG TABLET PO (10:52)
[2021-03-10] MEDS: amLODIPine BESYLATE 5 MG TABLET PO (10:52)
[2021-03-10] MEDS: ALPRAZolam (*CRX) 0.5 MG TABLET PO ×3 (10:52→16:57)
[2021-03-10] MEDS: LANSOPRAZOLE ORAL SUSP 30 MG/10 ML ORAL.SUSP FEED TUBE (10:54)
[2021-03-10] MEDS: LIDOCAINE 5% PATCH 1 PATCH TOPICAL (10:55)
--- NOTE | 2021-03-10 13:00 | PC.NURSE ---
spoke to Dr. cottno, will get order for po meds to be given g-tube.
--- NOTE | 2021-03-10 14:57 | P.DS_ITS ---
DS: Summary Time Spent with Patient Time attestation: Total time spent providing and/or coordinating discharge ser vices: DS: Data Data Completed and Pending Labs on day of discharge: Labs from last 24 hours 03/10/21 03/10/21 03/10/21 04:12 04:12 04:12 WBC 9.6 RBC 3.99 L Hgb 12.7 L Hct 39.2 L MCV 98.2 MCH 31.8 MCHC 32.4 RDW 12.4 Plt Count 227 MPV 10.5 H Immature Gran % (Auto) 0.4 Neut % (Auto) 73.5 H Lymph % (Auto) 15.0 L [place] % (Auto) 9.1 H Eos % (Auto) 1.5 Baso % (Auto) 0.5 Lymph # (Auto) 1.44 [place] # (Auto) 0.9 H Eos # (Auto) 0.1 Baso # (Auto) 0.1 Abs Immat Gran (auto) 0.04 H Absolute Neuts (auto) 7.0 H Absolute Nucleated RBC 0.0 Nucleated RBC % 0.0 Sodium 143 Potassium 3.1 L Chloride 106 Carbon Dioxide 29 Anion Gap 8 BUN 33 H Creatinine 0.90 Estim Creat Clear Calc Not Reportable Estimated GFR > 60 Glucose 118 H Calcium 9.2 Magnesium 2.1 Total Bilirubin 0.6 AST 26 ALT 38 Alkaline Phosphatase 115 Total Protein 7.0 Albumin 3.7 Discharge Plan Discharge Consulting providers: Elmo Jiménez Discharge Medications: No Action dantrolene 25 mg Capsule 25 mg feeding tube TID RF: 0 trazodone 50 mg Tablet 50 mg PO HS RF: 0 atorvastatin 10 mg Tablet 10 mg feeding tube DAILY RF: 0 chlorthalidone 25 mg Tablet 25 mg PO DAILY RF: 0 amlodipine 5 mg Tablet 5 mg PO DAILY RF: 0 acetaminophen 500 mg Tablet 500 mg feeding tube QID RF: 0 potassium chloride 20 mEq/15 mL Liquid 20 meq PO DAILY RF: 0 alprazolam 0.5 mg Tablet 0.5 mg PO TID RF: 0 lansoprazole 30 mg Capsule,Delayed Release(Dr/Ec) 30 mg feeding tube DAILY RF: 0 buspirone 7.5 mg Tablet 7.5 mg PO BID RF: 0 aspirin 81 mg Tablet,Chewable 81 mg feeding tube DAILY RF: 0 zolpidem 5 mg Tablet 5 mg PO HS RF: 0 docusate sodium 100 mg Tablet 100 mg PO DAILY RF: 0 tizanidine 4 mg Capsule 4 mg PO TID RF: 0 hydrocodone-acetaminophen 5-325 mg Tablet 1 tablet PO Q6H PRN (Reason: Pain) RF: 0 guaifenesin 100 mg/5 mL Liquid 200 mg feeding tube Q4H PRN (Reason: Cough) RF: 0 hydrocortisone 1 % Cream 1 applic TOPICAL TID RF: 0 lidocaine 5 % Adhesive Patch,Medicated 1 patch TOPICAL DAILY RF: 0 polyethylene glycol 3350 17 gram/dose Powder 17 g PO DAILY RF: 0 Date of admission: 03/10/21 04:07 Primary Care Provider: Jarrett,Jordan Ledezma Admitting Provider: Cody Sandoval V. Attending physician on admission: Honorio Jacob Condition: Stable
--- NOTE | 2021-03-10 14:58 | PM.SD2 ---
Same Day Admit/Disch: HPI History of Present Illness Chief complaint: G-tube Malfunction Narrative: This is a 75 year gentleman with past medical history of CVA, hyperlipidemia, hypertension, CHF, and dysphagia, with feeding through percutaneous gastrostomy tube, into the emergency department this morning after he was brought in by EMS, for inadvertent removal of his gastrostomy tube. He does not know how it happened. He thinks he may have gotten caught through his clothes. He reports he has been otherwise in his usual state of health. He is usually unable to move his left upper extremity due to prior stroke. His initial blood work showed WBC 9.6, hemoglobin 12.7, platelets 227, MCV 98, sodium 143, potassium 3.1, chloride 106, bicarb 29, anion gap 8, BUN 33, creatinine 0.9, glucose 118, calcium 9.2, magnesium 2.1, normal liver function tests, albumin 3.7. Of note, he just presented on 03/06 with similar complaint and a Rowland catheter was placed to keep the tract, then presented again on 03/07 and he had a gastrostomy tube placed at the bedside. He was discharged from the emergency department. However this is the 2nd time it happens. [facility] Past Medical History Medical History Anxiety CHF (congestive heart failure) CVA (cerebral vascular accident) Dysphagia Dysphagia as late effect of cerebrovascular accident (CVA) Hemiplegia affecting left nondominant side Hyperlipidemia Hypertension Malfunction of percutaneous endoscopic gastrostomy (PEG) tube Surgical History Surgical History Gastrostomy tube in place Social History Social History Smoking status: Never smoker Alcohol intake: former Substance use: never Spiritual care concerns: No Same Day Admit/Disch: Med Pre-admit Medications Home Medications Medication Instructions Recorded Confirmed Type acetaminophen 500 mg FEEDING TUBE QID 03/06/21 03/10/21 History alprazolam 0.5 mg PO TID 03/06/21 03/10/21 History amlodipine 5 mg PO DAILY 03/06/21 03/10/21 History aspirin 81 mg FEEDING TUBE DAILY 03/06/21 03/10/21 History atorvastatin 10 mg FEEDING TUBE DAILY 03/06/21 03/10/21 History buspirone 7.5 mg PO BID 03/06/21 03/10/21 History chlorthalidone 25 mg PO DAILY 03/06/21 03/10/21 History dantrolene 25 mg FEEDING TUBE TID 03/06/21 03/10/21 History docusate sodium 100 mg PO DAILY 03/06/21 03/10/21 History lansoprazole 30 mg FEEDING TUBE DAILY 03/06/21 03/10/21 History potassium chloride 20 meq PO DAILY 03/06/21 03/10/21 History tizanidine 4 mg PO TID 03/06/21 03/10/21 History trazodone 50 mg PO HS 03/06/21 03/10/21 History zolpidem 5 mg PO HS 03/06/21 03/10/21 History guaifenesin 200 mg FEEDING TUBE Q4H PRN 03/10/21 03/10/21 History hydrocodone-acetaminophen 1 tablet PO Q6H PRN 03/10/21 03/10/21 History hydrocortisone 1 applic TOPICAL TID 03/10/21 03/10/21 History lidocaine 1 patch TOPICAL DAILY 03/10/21 03/10/21 History polyethylene glycol 3350 17 g PO DAILY 03/10/21 03/10/21 History Exam Narrative: Gen: Alert, NAD Abd: Soft, NT, ND, Peg tube in place Heart: RRR Lungs: CTAB Ext: No lower extremity edema DS: Data Data Completed and Pending Labs on day of discharge: Labs from last 24 hours 03/10/21 03/10/21 03/10/21 04:12 04:12 04:12 WBC 9.6 RBC 3.99 L Hgb 12.7 L Hct 39.2 L MCV 98.2 MCH 31.8 MCHC 32.4 RDW 12.4 Plt Count 227 MPV 10.5 H Immature Gran % (Auto) 0.4 Neut % (Auto) 73.5 H Lymph % (Auto) 15.0 L [place] % (Auto) 9.1 H Eos % (Auto) 1.5 Baso % (Auto) 0.5 Lymph # (Auto) 1.44 [place] # (Auto) 0.9 H Eos # (Auto) 0.1 Baso # (Auto) 0.1 Abs Immat Gran (auto) 0.04 H Absolute Neuts (auto) 7.0 H Absolute Nucleated RBC 0.0 Nucleated RBC % 0.0 Sodium 143 Potassium 3.1 L Chloride 106 Carbon Di
[2021-03-10] MEDS: busPIRone HCL 2.5 MG, busPIRone HCL 5 MG 7.5 MG PO (16:57)
[2021-03-10] MEDS: DANTROLENE SODIUM 25 MG CAPSULE FEED TUBE (16:57)
== END 2021-03-10 17:06 ==
LOC: ANHED 04:10 → ANH3MEDSUR 04:41
PROVIDERS: Internal Medicine Gastroenterology; Admitting Provider Internal Medicine; Emergency Provider Emergency Medicine; PCP Internal Medicine; Visit Provider Internal Medicine Nephrology
PROC: 0DH63UZ Insertion of Feeding Device into Stomach, Percutaneous Approach (ICD-10-PCS; CPT 43246; principal; 2021-03-10 09:00)
DX: T85.528A Displacement of other gastrointestinal prosthetic devices, implants and grafts, initial encounter (principal); R13.10 Dysphagia, unspecified; I69.391 Dysphagia following cerebral infarction; I69.354 Hemiplegia and hemiparesis following cerebral infarction affecting left non-dominant side; E78.5 Hyperlipidemia, unspecified; I11.0 Hypertensive heart disease with heart failure; I50.9 Heart failure, unspecified
CPT/HCPCS: 36415; 43246; 80053; 83735; 85025; 96374; 96375; 99285; A9270; G0378; J0690; J2270; J2704; J3480; J7030; J7120

== ENCOUNTER 2021-12-25 09:58 | Day surgery (SDC) | payer MEDICARE, SELFPAY ==
[2021-12-25 10:21] VITALS: BMI 22.1
[2021-12-25 10:48] VITALS: BMI 22.1
[2021-12-25] MEDS: LACTATED RINGERS 1,000 ML 150 ML IV CONT (10:58)
--- NOTE | 2021-12-25 11:20 | WPDANESEPPF ---
Anes - Initial Pre Proc Eval Procedure: Operation Date: 12/25/21 12:30 Proposed Procedures p Esophagogastroduodenoscopy - Elmo Jiménez MD Date/Time: 12/25/21 11:20 Surgeon: Elmo Jiménez MD Pre Op Diagnosis: foreign body removal Patient Data Age: 76 Gender: M Height: 1.78 m Weight: 70 kg Allergies Allergy/AdvReac Type Severity Reaction Status Date / Time alteplase Allergy Anaphylaxis Verified 12/25/21 10:47 Home Medications Medication Instructions Recorded Confirmed Type acetaminophen 500 mg tablet 500 mg feeding tube QID 03/06/21 12/25/21 History alprazolam 0.5 mg tablet (Xanax) 0.5 mg PO TID 03/06/21 12/25/21 History amlodipine 5 mg tablet 5 mg PO DAILY 03/06/21 12/25/21 History aspirin 81 mg chewable tablet 81 mg feeding tube DAILY 03/06/21 12/25/21 History atorvastatin 10 mg tablet 10 mg feeding tube DAILY 03/06/21 12/25/21 History buspirone 7.5 mg tablet 7.5 mg PO BID 03/06/21 12/25/21 History chlorthalidone 25 mg tablet 25 mg PO DAILY 03/06/21 12/25/21 History dantrolene 25 mg capsule 25 mg feeding tube TID 03/06/21 12/25/21 History docusate sodium 100 mg tablet 100 mg PO DAILY 03/06/21 12/25/21 History lansoprazole 30 mg capsule,delayed 30 mg feeding tube DAILY 03/06/21 12/25/21 History release potassium chloride 20 mEq/15 mL 20 meq PO DAILY 03/06/21 12/25/21 History oral liquid tizanidine 4 mg capsule 4 mg PO TID 03/06/21 12/25/21 History trazodone 50 mg tablet 50 mg PO HS 03/06/21 12/25/21 History zolpidem 5 mg tablet 5 mg PO HS 03/06/21 12/25/21 History guaifenesin 100 mg/5 mL oral liquid 200 mg feeding tube Q4H PRN Cough 03/10/21 12/25/21 History hydrocodone 5 mg-acetaminophen 325 1 tablet PO Q6H PRN Pain 03/10/21 12/25/21 History mg tablet hydrocortisone 1 % topical cream 1 applic topical TID 03/10/21 12/25/21 History lidocaine 5 % topical patch 1 patch topical DAILY 03/10/21 12/25/21 History polyethylene glycol 3350 17 17 g PO DAILY 03/10/21 12/25/21 History gram/dose oral powder Patient hx anesthesia problems: none Family hx anesthesia problems: none Results Review: All pre-operative results and documents have been reviewed as part of the pre-operative evaluation. [facility] Past Medical History Medical History Anxiety CHF (congestive heart failure) CVA (cerebral vascular accident) Dysphagia Dysphagia as late effect of cerebrovascular accident (CVA) Hemiplegia affecting left nondominant side Hyperlipidemia Hypertension Malfunction of percutaneous endoscopic gastrostomy (PEG) tube Surgical History Surgical History Gastrostomy tube in place Social History Social History Smoking status: Never smoker Alcohol intake: former Substance use: never Spiritual care concerns: No Anes - Eval Final PreProcedure Day of Procedure 12/25/21 11:20 Patient weight: normal Heart: regular rate and rhythm Lungs: clear to auscultation Airway: Mallampati scale class II Neurological: alert and oriented Last oral intake: >/= 8 hours ASA classification: IV Emergent: no Anesthetic plan: proceed Anesthesia type and monitoring: general GIVS and standard monitoring Results Review: All pre-operative results and documents have been reviewed as part of the pre-operative evaluation. Informed Consent: The patient's anesthetic plan and its attendant risks and benefits were discussed with the patient/family/POA. Questions were solicited and answers provided to the satisfaction of the patient/family/POA.
[2021-12-25 12:16] VITALS: BP 77/51; PULSE 73; RESP 18; O2SAT 100
[2021-12-25 12:26] VITALS: BP 106/51; PULSE 72; RESP 13; O2SAT 97
[2021-12-25 12:36] VITALS: BP 130/69; PULSE 72; RESP 12; O2SAT 97
== END 2021-12-25 13:15 | disposition home or self-care (01) ==
PROVIDERS: PCP Internal Medicine; Visit Provider Internal Medicine Gastroenterology
PROC: 0DJ08ZZ Inspection of Upper Intestinal Tract, Via Natural or Artificial Opening Endoscopic (ICD-10-PCS; CPT 43235; principal; 2021-12-25 12:30)
DX: T85.528A Displacement of other gastrointestinal prosthetic devices, implants and grafts, initial encounter (principal); Y83.8 Other surgical procedures as the cause of abnormal reaction of the patient, or of later complication, without mention of misadventure at the time of the procedure; F41.9 Anxiety disorder, unspecified; I11.0 Hypertensive heart disease with heart failure; I50.9 Heart failure, unspecified; E78.5 Hyperlipidemia, unspecified; Z79.82 Long term (current) use of aspirin; I69.354 Hemiplegia and hemiparesis following cerebral infarction affecting left non-dominant side; K29.70 Gastritis, unspecified, without bleeding
CPT/HCPCS: 43235; J2704; J7120

== ENCOUNTER 2022-12-03 13:30 | Outpatient (RCR) | payer MEDICARE, SELFPAY ==
[2022-10-26 12:36] VITALS: BP_SYST 36
--- NOTE | 2022-10-26 13:46 | OTOPEVAL1 ---
Assessment and note entered by Brionna Jesus OTR/Shane Evaluation Information Assessment Status Evaluation Diagnosis CVA Subjective Information Patient presents to outpatient OT with a history of CVA from December 17, 2020. Since initial CVA went to rehab, then to [facility] where he has resides in the SNF side, receives therapy occasionally. Patient reports has Botox injections every 6 months in L UE/LE, next Botox injection is December 02. Patient reports goals with therapy is to get L UE loose and stronger, wants to play golf again or use L UE to assist with holding a walker. Reported Pain Level Pain Score 0: Self Report Assessment OT Clinical Summary Katie is a 77 year old male who presents to Outpatient OT following a CVA in 2020. Patient demonstrates L side weakness with L UE in a shoulder adduction, shoulder IR, elbow extended, forearm pronated, wrist flexed, fingers in flexed position. Patient is motivated but prognosis of L UE is guarded due to severity of L arm contracture , discussed this with patient and who verbalize understanding. Patient would benefit from skilled OT for HEP instruction, modalities, manual therapy to increase ROM and functional use of L UE. Plan of Care Interventions Therapeutic Exercise,Manual Therapy,Neuro Re- education,Therapeutic Activities,Hot Pack/Cold Pack,Electrical Stimulation,Check Out for Orthotic /Pr OT Services Indicated Yes Treatment Frequency and 1x/week, 4 weeks Duration These treatments will address the objective and functional deficits as defined above. The patient will be advanced safely and appropriately in order for the patient to progress towards his/her prior level of function. Additional exercises will be introduced and as well as a comprehensive home exercise program upon discharge, if needed, ?to ensure carryover of functional gains achieved in the clinic. This treatment plan has been reviewed and agreement upon by the patient.
--- NOTE | 2022-10-26 16:37 | PTOPEVAL1 ---
Assessment and note entered by Manoj Schuster, PT, DPT Evaluation Information Assessment Status Evaluation Diagnosis CVA Onset December 2020 Subjective Information Pt currently lives in [facility]. After his stroke he went to [facility] and states he did a little bit of walking, this was in [place]. He states since then he does very little therapy at [facility]. He is currently a homero lift at therapy, he states he stands very rarely in therapy. Pt states his end goal is to play golf again, his states she wants him to be able to come home. He gets Botox injections every 60 days, pts states he get about 4-6 weeks of relief to where he can actually use his LE. Pt has a DynaSplint and has been working to get terminal knee extension. Reported Pain Level Pain Score 7: Self Report Pain Score 0: Self Report Assessment PT Clinical Summary Katie presents to therapy today for his initial evaluation to treat his residiual deficits following a CVA in December of 2020. Today demonstrates significant weakness of his LLE mainly 0-1/5 with decreased ROM active and passively. He demonstrates strong extensor tone in his LLE. He currently requires Max A x2 to stand for ~30 secs with Mod A x2 required to maintain standing. He demonstrates poor sitting balance and sitting tolerance without assist from external support. Skilled physical therapy services are indicated to address the deficits noted above, to improve independence, to minimize functional impairments, and to work towards pt and family goals. Plan of Care Interventions Hot Pack/Cold Pack,Manual Therapy,Neuro Re- education,Patient/Caregiver Educati,Therapeutic Activities,Therapeutic Exercise,Self-Care/Home Management,Wheelchair Training PT Services Indicated Yes Treatment Frequency and 2x/wk for 4 wks Duration These treatments will address the objective and functional deficits as defined above. The patient will be advanced safely and appropriately in order for the patient to progress towards his/her prior level of function. Additional exercises will be introduced and as well as a comprehensive home exercise program upon discharge, if needed, ?to ensure carryover of functional gains achieved in the clinic. This treatment plan has been reviewed and agreement upon by the patient.
--- NOTE | 2022-12-03 13:13 | PTOPDC ---
Assessment and note entered by Manoj Schuster, PT, DPT Evaluation Information Assessment Status Discharge Diagnosis CVA Onset December 2020 Subjective Information Pt reports slow progress with therapy. He reports daily compliance with his HEP but his states he is non compliant with these. His reports not being able to get a custom WC d/t being in a senior living facility. Reported Pain Level Pain Score 1: Self Report Assessment PT Clinical Summary Katie presents to therapy today for his progress report following 10 visits of skilled therapy to treat his residual deficits following a CVA in December of 2020. Today he demonstrates ~10 deg of active ankle and knee motion on the L, he has knee flexion and ankle plantarflexion contractures on the L. He continues to require total assist for a posterior scoot in his chair and is still unable to maintain unsupported sitting. He will be discharged from skilled therapy services at this time d/t poor therapy progress.
[2022-12-03 13:31] VITALS: BP_SYST 50
--- NOTE | 2022-12-03 14:16 | OTOPDC ---
Assessment and note entered by ADRIEL Rey/Shane Evaluation Information Assessment Status Discharge Assessment Status Discharge Diagnosis CVA Subjective Information Patient presents to outpatient OT with a history of CVA from December 17, 2020. Patient has attended OT x4 sessions. Patient reports has not seen progress with L UE with increasing any ROM. Patient reports only sometimes completes AAROM of shoulder flexion for HEP. Patient's reports does not complete HEPs often or allow for assistance with passive ROM due to increased pain and discomfort with attempting ROM of L UE. Reported Pain Level Pain Score 0: Self Report Pain Score 1: Self Report Assessment OT Clinical Summary Katie is a 77 year old male who presents to Outpatient OT following a CVA in 2020 for a progress report after x4 visits with OT. Patient demonstrates L side weakness with L UE in a shoulder adduction, shoulder IR, elbow extended, forearm pronated, wrist flexed, fingers in flexed position. Patient demonstrates no improvements with passive ROM of shoulder, elbow, wrist, hand at this time. Discussed with patient and patient's positioning and HEP compliance. Plan is to discharge patient at this time with HEP due to lack of progress with therapy. Plan of Care OT Services Indicated No
== END 2022-12-04 11:44 | disposition home or self-care (01) ==
LOC: ANHGOSHOT 13:30
PROVIDERS: PCP Internal Medicine; Visit Provider Internal Medicine
DX: M62.838 Other muscle spasm (principal); I63.00 Cerebral infarction due to thrombosis of unspecified precerebral artery
CPT/HCPCS: 97110; 97112; 97140; 97163; 97165; 97530